=== PATIENT | female | born 1945 | race Asian ===

== ENCOUNTER 2017-08-05 12:24 | Inpatient (IN) | payer MEDICARE ==
[~2017-08-05] VITALS: Ht 160 cm; Wt 54.9 kg
--- NOTE | 2017-08-05 12:35 | NUR ---
SEND BY DR NAQVI: FREQUENT FALLS EVAL.PATIENT HAS R SHOULDER Fx S/P GLF. GENERALIZED MUSCLE WEAKNESS, UNSTEADY GAIT. A/OX 2, BREATHING EVEN AND UNLABORED. NO SOB, NAD, VITALS STABLE. SAFETY AND COMFORT MEASURES IN PLACE. AWAITING MD ORDERS.
[2017-08-05] MEDS ORDERED: IV NS 0.9% 1,000 ML BAG IV ONE (13:00)
--- NOTE | 2017-08-05 13:00 | NUR ---
NEW IV STARTED ON LAC, 20G. BLOOD DRAWN AND SENT TO LAB.
[2017-08-05 13:04] LABS: BASOPHILS % (AUTO) 0.1 % (0.0-2.0); EOSINOPHILS % (AUTO) 0.9 % (0.0-6.0); HEMATOCRIT 34 % (33-45); HEMOGLOBIN 11.6 g/dL (11.5-14.8); LYMPHOCYTES # (AUTO) 0.2 /CMM (0.8-4.8); LYMPHOCYTES % (AUTO) 8.2 % (20.0-44.0); MEAN CORPUSCULAR HGB CONC 34 g/dl (31.0-36.0); MEAN CORPUSCULAR VOLUME 87 fL (82-100); MONOCYTES # (AUTO) 0.1 /CMM (0.1-1.30); MONOCYTES % (AUTO) 3.2 % (2.0-12.0); NEUTROPHILS # (AUTO) 2.5 /CMM (1.8-8.9); NEUTROPHILS % (AUTO) 87.6 % (43.0-81.0); PLATELET COUNT (AUTO) 90 /CMM (150-450); RDW COEFFICIENT OF VARIATION 16.7 (11.5-15.0); RED BLOOD CELL COUNT(AUTO) 3.87 MIL/uL (4.0-5.2); WHITE BLOOD COUNT (AUTO) 2.8 K/uL (4.3-11.0)
--- NOTE | 2017-08-05 13:05 | NUR ---
RETREAD MOLD OPERATOR AT BEDSIDE.
[2017-08-05 13:16] LABS: CALCIUM, SERUM 9.7 mg/dL (8.5-10.1); CARBON DIOXIDE 31 mmol/L (21-32); CHLORIDE 98 mmol/L (98-107); CREATININE 1.2 mg/dL (0.6-1.3); GLUCOSE 146 mg/dL (74-106); POTASSIUM 3.7 mmol/L (3.5-5.1); SODIUM SERUM 136 mmol/L (136-145); UREA NITROGEN, BLOOD 44 mg/dL (7-18)
[2017-08-05 13:22] LABS: ALANINE AMINOTRANSFERASE 64 U/L (12-78); ALBUMIN 3.7 g/dL (3.4-5.0); ALKALINE PHOSPHATASE 101 U/L (46-116); ASPARTATE AMINOTRANSFERASE 90 U/L (15-37); BILIRUBIN,DIRECT 0.3 mg/dL (0.0-0.2); BILIRUBIN,TOTAL 0.7 mg/dL (0.2-1.0); TOTAL PROTEIN, SERUM 8.1 g/dL (6.4-8.2)
[2017-08-05 13:24] LABS: TROPONIN I < 0.017 ng/mL (0.00-0.056)
[2017-08-05 13:31] LABS: INR 0.92 (0.87-1.13)
[2017-08-05] MEDS ORDERED: LACT1CAP71 PO (13:43)
[2017-08-05] MEDS ORDERED: ALEN70TA3 PO (13:43)
[2017-08-05] MEDS ORDERED: MULT-447 PO (13:43)
[2017-08-05] MEDS ORDERED: METO25TA3 PO (13:43)
[2017-08-05] MEDS ORDERED: AMLO5TAB7 PO (13:43)
[2017-08-05] MEDS ORDERED: METH2.5T PO (13:43)
[2017-08-05] MEDS ORDERED: CALC1CAP21 PO (13:43)
[2017-08-05] MEDS ORDERED: OXYB15TA PO (13:43)
[2017-08-05] MEDS ORDERED: ESCI20TA PO (13:43)
[2017-08-05] MEDS ORDERED: LOSA100T3 PO (13:43)
[2017-08-05] MEDS ORDERED: MAGN400T26 PO (13:43)
[2017-08-05] MEDS ORDERED: ATOR10TA PO (13:43)
[2017-08-05] MEDS ORDERED: ASPI-1169 PO (13:43)
--- NOTE | 2017-08-05 13:58 | NUR ---
ANTIQUE AUTOMOBILES REPAIRER AT BEDSIDE ONCE AGAIN
[2017-08-05 14:28] LABS: APPEARANCE,URINE Clear (CLEAR); BILIRUBIN,URINE Negative (NEGATIVE); BLOOD, URINE Trace-lysed Ery/uL (NEGATIVE); COLOR,URINE Yellow (YELLOW); KETONES,URINE Negative (NEGATIVE); LEUKOCYTE ESTERASE ,URINE Negative (NEGATIVE); NITRITE, URINE Negative (NEGATIVE); PH,URINE 6.5 (5.0-8.0); PROTEIN,URINE Negative (NEGATIVE); UGLUCOSE 100 MG/DL mg/dL (NEGATIVE); UROBILINOGEN,URINE 0.2 EU/dL (0.2)
--- NOTE | 2017-08-05 14:43 | NUR ---
PATIENT TAKEN TO CT VIA STRETCHER.
[2017-08-05 14:48] LABS: BACTERIA,URINE None seen /HPF (None Seen); SQUAMOUS EPITHELIAL CELL,UR Few /HPF (None Seen)
--- NOTE | 2017-08-05 14:58 | NUR ---
PATIENT RETURNED FROM CT IN STABLE CONDITION.
[2017-08-05] MEDS ORDERED: GENTAMICIN OPTH OINT 0.3% 3.5 G TUBE EACHEYE SCH (15:00)
[2017-08-05] MEDS: ATORVASTATIN 10 MG TABLET PO SCH (15:00)
[2017-08-05] MEDS ORDERED: CEFTRIAXONE 1 G VIAL IM SCH (15:00)
[2017-08-05] MEDS: CALCIUM CARB 600MG /VIT D 1 EACH TABLET PO SCH (15:00)
[2017-08-05] MEDS: ASPIRIN 81 MG TAB.CHEW PO SCH (15:00)
[2017-08-05] MEDS: LOSARTAN POTASSIUM 50 MG TABLET PO SCH (15:00)
[2017-08-05] MEDS: MAGNESIUM OXIDE 400 MG TABLET PO SCH (15:00)
[2017-08-05] MEDS: METOPROLOL SUCCINATE 25 MG TAB.SR.24H PO SCH (15:00)
[2017-08-05] MEDS: AMLODIPINE BESYLATE 5 MG TABLET PO SCH (15:00)
[2017-08-05] MEDS: LACTOBACILLUS RHAMNOSUS GG 1 EACH CAP.SPRINK PO SCH (15:00)
[2017-08-05] MEDS: GENTAMICIN OPTH SOLN 0.3% 5 ML BOTTLE EACHEYE SCH ×3 (15:00→23:13)
[2017-08-05 15:17] LABS: BAND % (MANUAL) 13 % (0.0-5.0); LYMPHOCYTES % (MANUAL) 6 % (16-48); MONOCYTES % (MANUAL) 2 % (0-11.0); NEUTROPHILS % (MANUAL) 79 (42-76)
[2017-08-05 16:00] VITALS: BP 148/84
--- NOTE | 2017-08-05 16:15 | NUR ---
REPORT GIVEN TO SHANEKA HEIN FOR JOSE UPON ADMISSION.
--- NOTE | 2017-08-05 16:30 | NUR ---
WIRE WINDERBULL BUCKER NOTE PATIENT BROUGHT IN [facility] BY ER. PER PATIENT SHE HAD A FALL AT HOME, LIVES AT HOME WITH A ROOMMATE, ROOMMATE WAS ABLE TO BRING HER INTO THE EMERGENCY ROOM. RECEIVED REPORT FROM ANGEL LUIS LOCKE. PATIENT IS ALERT AND ORIENTED x2. S/P FALL AT HOME, BEDREST AT THIS TIME. HISTORY OF HTN, RHEUMATOID ARTHRITIS, AND ABDOMINAL SX. RECEIVED BOTH FLU AND PNEUMONIA VACCINES, UNABLE TO RECALL WHEN. LEFT AC IV INTACT AND PATENT NO REDNESS OR SWELLING NOTED. ABLE TO COMMUNICATE NEEDS. PATIENT HAS LEFT SIDE ARM WEAKNESS. TELE ST-107. HAS RIGHT CLAVICLE FRACTURE AND 3&4TH RIB FX. CARDIAC DIET. PENDING MD ORDERS AT THIS TIME WILL CONTINUE TO MONITOR THROUGHOUT SHIFT
--- NOTE | 2017-08-05 16:30 | NUR ---
PATIENT TRANSPORTED TO [facility]– [place] VIA ACLS PROTOCOL. RNSHANEKA TO PROVIDE JOSE.
--- NOTE | 2017-08-05 16:58 | NUR ---
RN NOTE PATIENT REFUSED ALL AFTERNOON MEDICATION PER PATIENT " I WILL TAKE THEM TOMORROW". EXPLAINED RISKS AND BENEFITS, PATIENT STILL REFUSED
[2017-08-05] MEDS ORDERED: ONDANSETRON HCL/PF 4 MG/2 ML VIAL IVP PRN (17:30)
[2017-08-05 17:40] VITALS: BP 149/85
[2017-08-05] MEDS ORDERED: ENOXAPARIN SODIUM 30 MG/0.3 ML DISP.SYRIN SQ SCH (18:00)
[2017-08-05] MEDS: CEFTRIAXONE 1 G in IV NS 0.9% 50 ML IV SCH (18:15)
[2017-08-05] MEDS: IV D5/ 0.9% NACL 1,000 ML IV PRN (18:16)
--- NOTE | 2017-08-05 18:42 | NUR ---
MODEL MAKER PLASTER CLOSING NOTE PATIENT IS RESTING COMFORTABLY AT THIS TIME. NO PAIN NOTED. NO SOB OR DISTRESS NOTED. CALL LIGHT WITHIN REACH AT ALL TIMES. SAFETY MEASURES IMPLEMENTED. IV INTACT AND PATENT WITH IV FLUIDS RUNNING AT THIS TIME TOLERATING WELL AT 25 ML/HR. ABLE TO COMMUNICATE NEEDS. ALL DUE MEDICATIONS GIVEN ORDERED. ALL NURSING CARE NEEDS ATTENDED TO. WILL ENDORSE TO MANAGER RETAIL STORE NURSE FOR JOSE
--- NOTE | 2017-08-05 19:15 | NUR ---
RECIEVED MS. URRUTIA AWAKE ALERT AND AWARE OF ME AT HERE BEDSIDE. SPEAKS IN A WHISPER,NOT HAND ELEVATOR REPAIRER APPRENTICE MODERATLY STRONG BUT RAISING HER ARMS NOTED WEAK AND SLOW SHE RAISES THEM SHE IS ABLE TO HOLD HER CELL PHONE AND TALK. NOTED ON HER BILATERAL LOWER BUTTOCKS TWO WOUNDS THAT APPEAR TO LOOK LIKE SCRAPE EATON PHOTOS TAKEN AND THE DAY SHIFT NURSE DID ORDER A WOUND CONSULT TO SEE HER PAT COGITIVE SLOW BUT WILL FOLLOW DIRECTIONS WHEN NURSE INTIATES THE DIRECTION.
[2017-08-05 20:00] VITALS: BP 144/88
[2017-08-05 20:20] VITALS: BP 144/88
[2017-08-06] VITALS: BP 153/77
[2017-08-06 01:20] VITALS: BP 153/77
[2017-08-06] MEDS: GENTAMICIN OPTH SOLN 0.3% 5 ML BOTTLE EACHEYE SCH ×6 (02:52→22:58)
[2017-08-06 04:00] VITALS: BP 131/74
--- NOTE | 2017-08-06 05:54 | NUR ---
HAS 2 HEARING AIDES SHE TALKS ON HER CELL PHONE TO A FRIEND AND NOTED HER SPEECH IS UNDERSTANDABLE. SHE IS INCONTINENT D/T THE URGE COMES FAST AND SHE IS BEING ASSISTED TO THE BATHROOM SHE VOIDS NOT BEING ABLE TO HOLD HER URINE.NOTED ON HER BILATERAL BUTTOCKS TWO LARGE ABRASION PHOTOS TAKEN AND CLEANED WITH SOAP AND WATER LAUREN APPLIED WOUND NURSE TO SEE PATIENT. PATIENT ANSWERS QUESTIONS AND FOLLOWS SIMPLE DIRECTIONS, NOTED SHE SEEMED TO BE GETTING CLEARER THE MORNING SET IN WHEN AMBULATING TO THE BATHROOM WITH THE ASSIST OF A NURSE NO DIZZINESS OR SON NOTED
[2017-08-06 06:32] LABS: EOSINOPHILS % (AUTO) 0.3 % (0.0-6.0); HEMATOCRIT 29 % (33-45); LYMPHOCYTES # (AUTO) 0.4 /CMM (0.8-4.8); LYMPHOCYTES % (AUTO) 6.1 % (20.0-44.0); MEAN CORPUSCULAR HGB CONC 34 g/dl (31.0-36.0); MEAN CORPUSCULAR VOLUME 89 fL (82-100); MONOCYTES # (AUTO) 0.2 /CMM (0.1-1.30); MONOCYTES % (AUTO) 2.7 % (2.0-12.0); NEUTROPHILS # (AUTO) 5.6 /CMM (1.8-8.9); NEUTROPHILS % (AUTO) 90.9 % (43.0-81.0); PLATELET COUNT (AUTO) 77 /CMM (150-450); RDW COEFFICIENT OF VARIATION 17.6 (11.5-15.0); WHITE BLOOD COUNT (AUTO) 6.2 K/uL (4.3-11.0)
[2017-08-06 06:44] VITALS: BP 159/81
[2017-08-06 06:45] LABS: CALCIUM, SERUM 8.3 mg/dL (8.5-10.1); CARBON DIOXIDE 28 mmol/L (21-32); CHLORIDE 103 mmol/L (98-107); CREATININE 0.7 mg/dL (0.6-1.3); GLUCOSE 127 mg/dL (74-106); MAGNESIUM 1.5 mg/dL (1.8-2.4); PHOSPHORUS 1.8 mg/dL (2.5-4.9); POTASSIUM 2.9 mmol/L (3.5-5.1); SODIUM SERUM 141 mmol/L (136-145); UREA NITROGEN, BLOOD 16 mg/dL (7-18)
--- NOTE | 2017-08-06 07:35 | NUR ---
RN OPENING NOTE RECEIVED PT. PT IS STABLE AND RESTING IN BED. A/OX4. NO S/S OR RESP DISTRESS OR SOB. PT HAS NO C/O PAIN AT THIS TIME. TELE MONITOR IN PLACE READING SR. IV ACCESS LOCATED ON LEFT AC INFUSING D5 NS AT 25 ML/HR. BUTTOCKS ABRASIONS NOTED WITH PHOTOS TAKEN AND PLACED IN CHART. SAFETY MEASURES IN PLACE, CALL LIGHT WITHIN REACH. WILL CONTINUE TO MONITOR.
[2017-08-06] MEDS: ATORVASTATIN 10 MG TABLET PO SCH (08:18)
[2017-08-06] MEDS: LACTOBACILLUS RHAMNOSUS GG 1 EACH CAP.SPRINK PO SCH (08:18)
[2017-08-06] MEDS: CALCIUM CARB 600MG /VIT D 1 EACH TABLET PO SCH (08:18)
[2017-08-06] MEDS: PANTOPRAZOLE 40 MG TABLET.DR PO SCH (08:18)
[2017-08-06] MEDS: ASPIRIN 81 MG TAB.CHEW PO SCH (08:18)
[2017-08-06] MEDS: MAGNESIUM OXIDE 400 MG TABLET PO SCH (08:18)
[2017-08-06] MEDS: ESCITALOPRAM OXALATE (10 MG) 10 MG TABLET PO SCH (08:18)
[2017-08-06] MEDS: MULTIVIT, IRON, MIN NO. 8, FA 1 TAB PO SCH (08:18)
[2017-08-06] MEDS: AMLODIPINE BESYLATE 5 MG TABLET PO SCH ×2 (08:19→09:26)
[2017-08-06] MEDS: METOPROLOL SUCCINATE 25 MG TAB.SR.24H PO SCH ×3 (08:19→16:15)
[2017-08-06] MEDS: LOSARTAN POTASSIUM 50 MG TABLET PO SCH (08:19)
[2017-08-06 08:57] LABS: BAND % (MANUAL) 8 % (0.0-5.0); LYMPHOCYTES % (MANUAL) 4 % (16-48); MONOCYTES % (MANUAL) 4 % (0-11.0); NEUTROPHILS % (MANUAL) 84 (42-76)
[2017-08-06] MEDS ORDERED: POTASSIUM CHLORIDE 20 MEQ TAB.PRT.SR PO SCH (10:00)
[2017-08-06] MEDS ORDERED: Magnesium 1GM/D5W 100ML PREMIX 100 ML IV SCH (10:00)
--- NOTE | 2017-08-06 10:30 | NUR ---
RN NOTES PT EXPERIENCING BOUTS OF SVT WITH HR OF UP TO 184 BPM. MD AND CARDIO NOTIFIED. NEW ORDERS PLACED. WILL CONTINUE TO MONITOR.
[2017-08-06 11:24] LABS: THYROID STIMULATING HORMONE 0.429 uIU/mL (0.358-3.74)
[2017-08-06] MEDS: NEUTRA PHOS 1 POWD.PACKET PO SCH ×2 (12:04→22:58)
[2017-08-06] MEDS: Magnesium 1GM/D5W 100ML PREMIX 100 ML IV SCH ×2 (12:04→12:36)
[2017-08-06] MEDS: POTASSIUM CHLORIDE 20 MEQ TAB.PRT.SR PO SCH ×5 (12:05→14:00)
[2017-08-06] MEDS: BOOST PLUS FOOD-CHOCLATE 237 ML BOX PO SCH ×2 (12:06→17:58)
--- NOTE | 2017-08-06 12:45 | NUR ---
RN NOTES PT HR MANAGED, BELOW 100 BPM. WILL CONTINUE TO MONITOR VIA TELE.
[2017-08-06] MEDS: CEFTRIAXONE 1 G in IV NS 0.9% 50 ML IV SCH (16:13)
--- NOTE | 2017-08-06 18:32 | NUR ---
RN CLOSING NOTE PT IN BED RESTING. NO S/S OF RESP DISTRESS OR SOB. NO C/O PAIN AT THIS TIME. TELE MONITOR READING SR AT 72 BPM. ALL PT NEEDS ANTICIPATED AND MET. BED PLACED IN LOWEST POSITION WITH SIDERAILS UP X 3. SAFETY MEASURES IN PLACE, CALL LIGHT WITHIN REACH. WILL ENDORSE TO JOINT MACHINE OPERATOR FOR JOSE.
--- NOTE | 2017-08-06 19:21 | NUR ---
RECIEVED MS. URRUTIA AWAKE AND ALERT TALKING IN A WHISPER-TONE SHEWILL MAKE HER NEEDS KNOWN. NOTED 2 HRG AIDES IN A MARKED CUP AT HER BEDSIDE.MOVING ALL EXT APPEARS COMFORTABLE. IV SITE LEFT WRIST IV INFUSING ON A PUMP SALINE LOCK LEFT AV SITE CLEAN AND DRY
[2017-08-06 19:53] VITALS: BP 131/75
[2017-08-06 20:03] VITALS: BP 131/75
[2017-08-06] MEDS ORDERED: NEUTRA PHOS 1 POWD.PACKET PO ONE (23:00)
[2017-08-07] VITALS (8 sets, daily range): BP systolic 124–153; BP diastolic 69–87
[2017-08-07] MEDS: GENTAMICIN OPTH SOLN 0.3% 5 ML BOTTLE EACHEYE SCH ×6 (03:00→23:33)
--- NOTE | 2017-08-07 04:59 | NUR ---
MS URRUTIA DIDN'T SETTLE FOR SLEEP UNTIL MIDNIGHT. NOTED WHEN ASSISTED UP THE BSC SHE NEEDED MUCH ASSIST SHE IS WEAK IN GENERAL A FALL RISK. BEDALARM ON WHEN IN BED SHE MAKES NO ATTEMPT TO GET OOB ON HER OWN
[2017-08-07 06:31] LABS: EOSINOPHILS % (AUTO) 0.4 % (0.0-6.0); HEMATOCRIT 30 % (33-45); HEMOGLOBIN 10.1 g/dL (11.5-14.8); LYMPHOCYTES # (AUTO) 0.5 /CMM (0.8-4.8); LYMPHOCYTES % (AUTO) 6.3 % (20.0-44.0); MEAN CORPUSCULAR HGB CONC 34 g/dl (31.0-36.0); MEAN CORPUSCULAR VOLUME 89 fL (82-100); MONOCYTES # (AUTO) 0.3 /CMM (0.1-1.30); NEUTROPHILS # (AUTO) 6.6 /CMM (1.8-8.9); NEUTROPHILS % (AUTO) 89.3 % (43.0-81.0); PLATELET COUNT (AUTO) 76 /CMM (150-450); RDW COEFFICIENT OF VARIATION 18.3 (11.5-15.0); RED BLOOD CELL COUNT(AUTO) 3.37 MIL/uL (4.0-5.2); WHITE BLOOD COUNT (AUTO) 7.4 K/uL (4.3-11.0)
[2017-08-07 06:49] LABS: TROPONIN I < 0.017 ng/mL (0.00-0.056)
[2017-08-07 07:20] LABS: ALANINE AMINOTRANSFERASE 38 U/L (12-78); ALBUMIN 2.7 g/dL (3.4-5.0); ALKALINE PHOSPHATASE 73 U/L (46-116); ASPARTATE AMINOTRANSFERASE 38 U/L (15-37); BILIRUBIN,TOTAL 0.6 mg/dL (0.2-1.0); CALCIUM, SERUM 8.2 mg/dL (8.5-10.1); CARBON DIOXIDE 27 mmol/L (21-32); CHLORIDE 103 mmol/L (98-107); CREATININE 0.8 mg/dL (0.6-1.3); GLUCOSE 128 mg/dL (74-106); MAGNESIUM 1.8 mg/dL (1.8-2.4); PHOSPHORUS 1.9 mg/dL (2.5-4.9); POTASSIUM 4.1 mmol/L (3.5-5.1); SODIUM SERUM 139 mmol/L (136-145); TOTAL PROTEIN, SERUM 6.7 g/dL (6.4-8.2); UREA NITROGEN, BLOOD 11 mg/dL (7-18)
--- NOTE | 2017-08-07 07:35 | NUR ---
RN OPENING NOTE RECEIVED PT. PT IS STABLE AND RESTING IN BED. A/OX4. NO S/S OR RESP DISTRESS OR SOB. PT HAS NO C/O PAIN AT THIS TIME. LOWER BUTTOCKS WOUND DRESSINGS IN PLACE AND INTACT. IV ACCESS LOCATED ON LEFT AC INFUSING D5 NS AT 25 ML/HR. SAFETY MEASURES IN PLACE, CALL LIGHT WITHIN REACH. WILL CONTINUE TO MONITOR.
[2017-08-07] MEDS: CALCIUM CARB 600MG /VIT D 1 EACH TABLET PO SCH (08:21)
[2017-08-07] MEDS: MULTIVIT, IRON, MIN NO. 8, FA 1 TAB PO SCH (08:21)
[2017-08-07] MEDS: ESCITALOPRAM OXALATE (10 MG) 10 MG TABLET PO SCH (08:21)
[2017-08-07] MEDS: AMLODIPINE BESYLATE 5 MG TABLET PO SCH (08:27)
[2017-08-07] MEDS: LACTOBACILLUS RHAMNOSUS GG 1 EACH CAP.SPRINK PO SCH (08:27)
[2017-08-07] MEDS: METOPROLOL SUCCINATE 25 MG TAB.SR.24H PO SCH ×2 (08:27→16:08)
[2017-08-07] MEDS: LOSARTAN POTASSIUM 50 MG TABLET PO SCH (08:28)
[2017-08-07] MEDS: ASPIRIN 81 MG TAB.CHEW PO SCH (08:28)
[2017-08-07] MEDS: PANTOPRAZOLE 40 MG TABLET.DR PO SCH (08:28)
[2017-08-07] MEDS: BOOST PLUS FOOD-CHOCLATE 237 ML BOX PO SCH ×2 (08:28→17:00)
[2017-08-07] MEDS: MAGNESIUM OXIDE 400 MG TABLET PO SCH (08:28)
[2017-08-07] MEDS: NEUTRA PHOS 1 POWD.PACKET PO SCH ×2 (08:30→16:09)
[2017-08-07 08:32] LABS: NEUTROPHILS % (MANUAL) 88 (42-76)
[2017-08-07 08:33] LABS: BAND % (MANUAL) 2 % (0.0-5.0); LYMPHOCYTES % (MANUAL) 6 % (16-48); MONOCYTES % (MANUAL) 4 % (0-11.0)
--- NOTE | 2017-08-07 08:57 | NUR ---
pt seen by dr. Ramesh, pt's sister at beside, no new orders at this time.
[2017-08-07 09:15] LABS: MAGNESIUM 1.9 mg/dL (1.8-2.4)
--- NOTE | 2017-08-07 09:57 | NUR ---
RN NOTES OB STOOL SAMPLE TAKEN, AWAITING PICKUP FROM LABORATORY.
[2017-08-07 16:01] LABS: OCCULT BLOOD STOOL POSITIVE (NEGATIVE)
--- NOTE | 2017-08-07 18:49 | NUR ---
RN CLOSING NOTE PT IN BED RESTING. NO S/S OF RESP DISTRESS OR SOB. PT CONTINUES TO HAVE NON-PRODUCTIVE, PERSISTENT COUGH. PT TO HAVE F/U WITH PT AND CM REGARDING THERAPY AND D/C SERVICES. ALL PT NEEDS ANTICIPATED AND MET. SAFETY MEASURES IN PLACE, CALL LIGHT WITHIN REACH. WILL ENDORSE TO MOVER FOR JOSE.
--- NOTE | 2017-08-07 19:30 | NUR ---
RN NOTE; RECEIVED PT IN BED AWAKE AND ALERT. BREATHING EVENLY. NO SOB. NAD. SKIN WARM AND DRY, NO C/O PAIN OR DISCOMFORT. NEEDS ATTENDED . BED LOW LOCKED. CALL LIGHT WITHIN REACH., WILL CONT TO MONITOR.
[2017-08-07] MEDS: IV D5/ 0.9% NACL 1,000 ML IV PRN (23:35)
[2017-08-08] MEDS: GENTAMICIN OPTH SOLN 0.3% 5 ML BOTTLE EACHEYE SCH ×6 (03:23→23:15)
[2017-08-08 06:57] LABS: ALANINE AMINOTRANSFERASE 42 U/L (12-78); ALBUMIN 2.6 g/dL (3.4-5.0); ALKALINE PHOSPHATASE 81 U/L (46-116); ASPARTATE AMINOTRANSFERASE 35 U/L (15-37); BILIRUBIN,TOTAL 0.6 mg/dL (0.2-1.0); CALCIUM, SERUM 8.4 mg/dL (8.5-10.1); CARBON DIOXIDE 29 mmol/L (21-32); CHLORIDE 102 mmol/L (98-107); CREATININE 0.6 mg/dL (0.6-1.3); GLUCOSE 127 mg/dL (74-106); MAGNESIUM 1.8 mg/dL (1.8-2.4); PHOSPHORUS 2.4 mg/dL (2.5-4.9); POTASSIUM 3.6 mmol/L (3.5-5.1); SODIUM SERUM 138 mmol/L (136-145); TOTAL PROTEIN, SERUM 6.6 g/dL (6.4-8.2); UREA NITROGEN, BLOOD 7 mg/dL (7-18)
--- NOTE | 2017-08-08 07:05 | NUR ---
PT IN BED REMAINED STABLE THROUGH THE SHIFT . FALL PRECAUTION OBSERVED. NEEDS ATTENDED. BED LOW LOCKED. CALL LIGHT WITHIN REACH .WILL CONT TO MONITOR ,
[2017-08-08 07:16] LABS: BASOPHILS % (AUTO) 0.1 % (0.0-2.0); EOSINOPHILS % (AUTO) 1.7 % (0.0-6.0); HEMATOCRIT 31 % (33-45); HEMOGLOBIN 10.3 g/dL (11.5-14.8); LYMPHOCYTES # (AUTO) 0.4 /CMM (0.8-4.8); LYMPHOCYTES % (AUTO) 10.4 % (20.0-44.0); MEAN CORPUSCULAR HGB CONC 33 g/dl (31.0-36.0); MEAN CORPUSCULAR VOLUME 89 fL (82-100); MONOCYTES # (AUTO) 0.4 /CMM (0.1-1.30); MONOCYTES % (AUTO) 8.4 % (2.0-12.0); NEUTROPHILS # (AUTO) 3.4 /CMM (1.8-8.9); NEUTROPHILS % (AUTO) 79.4 % (43.0-81.0); PLATELET COUNT (AUTO) 77 /CMM (150-450); RDW COEFFICIENT OF VARIATION 17.3 (11.5-15.0); RED BLOOD CELL COUNT(AUTO) 3.48 MIL/uL (4.0-5.2); WHITE BLOOD COUNT (AUTO) 4.3 K/uL (4.3-11.0)
--- NOTE | 2017-08-08 07:45 | NUR ---
RN OPENING NOTES RECEIVED PT. IN BED A&OX4. BREATHING UNLABORED, AND EVENLY ON ROOM AIR. NO S/S OF ACUTE DISTRESS. PT. C/O GENERALIZED JOINT PAIN, PAIN ASSESSED AND PT. AGREED TO TAKING PAIN MEDICATION. IV FLUIDS RUNNING AT 25 ML/HR. BEDSIDE COMMODE WITHIN REACH. BED ALARM ON. BED IS IN LOWEST, AND LOCKED POSITION. 2 SIDE RAILS UP, AND INSTRUCTED PT. TO USE CALL LIGHT FOR ASSISTANCE. ALL NEEDS MET. WILL CONTINUE TO ASSESS AND MONITOR.
[2017-08-08] MEDS: PANTOPRAZOLE 40 MG TABLET.DR PO SCH (07:58)
[2017-08-08] MEDS: BOOST PLUS FOOD-CHOCLATE 237 ML BOX PO SCH ×2 (07:59→17:30)
[2017-08-08 08:00] VITALS: BP 164/95
[2017-08-08] MEDS: ASPIRIN 81 MG TAB.CHEW PO SCH (08:01)
[2017-08-08] MEDS: LOSARTAN POTASSIUM 50 MG TABLET PO SCH (08:02)
[2017-08-08] MEDS: HYDROCODONE/APAP 5/325MG 1 EACH TABLET PO PRN ×2 (08:02→17:34)
[2017-08-08] MEDS: MAGNESIUM OXIDE 400 MG TABLET PO SCH (08:03)
[2017-08-08] MEDS: MULTIVIT, IRON, MIN NO. 8, FA 1 TAB PO SCH (08:03)
[2017-08-08] MEDS: CALCIUM CARB 600MG /VIT D 1 EACH TABLET PO SCH (08:03)
[2017-08-08] MEDS: AMLODIPINE BESYLATE 5 MG TABLET PO SCH (08:03)
[2017-08-08] MEDS: LACTOBACILLUS RHAMNOSUS GG 1 EACH CAP.SPRINK PO SCH (08:03)
[2017-08-08] MEDS: METOPROLOL SUCCINATE 25 MG TAB.SR.24H PO SCH ×2 (08:04→17:31)
[2017-08-08] MEDS: ESCITALOPRAM OXALATE (10 MG) 10 MG TABLET PO SCH (08:04)
--- NOTE | 2017-08-08 08:45 | NUR ---
RN NOTES BP RECHECKED, 141/86, AND PULSE 65 BPM.
[2017-08-08 10:09] LABS: EOSINOPHILS % (MANUAL) 2 % (0-4); LYMPHOCYTES % (MANUAL) 15 % (16-48); MONOCYTES % (MANUAL) 8 % (0-11.0); NEUTROPHILS % (MANUAL) 75 (42-76)
[2017-08-08 10:17] LABS: *SPE A/G RATIO 1.1 (0.7-1.7); *SPE ALBUMIN 3.2 g/dL (2.9-4.4); *SPE ALPHA-1-GLOBULIN 0.3 g/dL (0.0-0.4); *SPE ALPHA-2-GLOBULIN 0.7 g/dL (0.4-1.0); *SPE BETA GLOBULIN 0.8 g/dL (0.7-1.3); *SPE GLOBULIN, TOTAL 2.9 g/dL (2.2-3.9); *SPE M-SPIKE Not Observed g/dL (Not Observed); *SPEGAMMA GLOBULIN 1.1 g/dL (0.4-1.8)
--- NOTE | 2017-08-08 10:38 | NUR ---
WOUND CARE CONSULT: PER TESFAYE KIRK N.P. PLASTIC SURGICAL TEAM TO FOLLOW PT FOR WOUNDS. DEFER TO SURGICAL TEAM. CURRENT ANGELINA SCORE IS 18. ALL SKIN PROTECTION AND PRESSURE PREVENTION MEASURES IN PLACE AND DISCUSSED WITH NURSING STAFF.
--- NOTE | 2017-08-08 10:55 | NUR ---
RN NOTES RECHECKED MANUAL BP, 118/68.
[2017-08-08] MEDS: VALSARTAN 80 MG TABLET PO SCH (11:07)
--- NOTE | 2017-08-08 11:40 | NUR ---
RN NOTES MOVED PT. TO ROOM 306 BED 1.
--- NOTE | 2017-08-08 13:00 | NUR ---
RN NOTES PT. RECEIVED A BILATERAL BUTTOCKS WOUND DEBRIDEMENT BY DR. MCARTHUR, CONSENT FORMS WERE SIGNED PRIOR TO PROCEDURE. PT. TOLERATED PROCEDURE WELL.
[2017-08-08] MEDS: NEOMY SULF/BACITRAC ZN/POLY 15 GM TUBE TP SCH (15:23)
[2017-08-08] MEDS: SILVER SULFADIAZINE CREAM 25 GM TUBE TP SCH (15:23)
[2017-08-08] MEDS ORDERED: K PHOS NEUTRAL 250 MG TABLET PO ONE (15:30)
[2017-08-08 16:00] VITALS: BP 144/79
--- NOTE | 2017-08-08 16:19 | NUR ---
RN NOTES WOUND CARE WAS PERFORMED PER ORDERS. PT. TOLERATED WOUND CARE WELL.
--- NOTE | 2017-08-08 19:21 | NUR ---
RN CLOSING NOTES PT. IS IN BED A&OX4. BREATHING UNLABORED, AND EVENLY ON ROOM AIR. NO S/S OF ACUTE DISTRESS. IV ACCESS IS INTACT AND PATENT. BEDSIDE COMMODE WITHIN REACH. BED ALARM ON. BED IS IN LOWEST, AND LOCKED POSITION. 2 SIDE RAILS UP, AND INSTRUCTED PT. TO USE CALL LIGHT FOR ASSISTANCE. ALL NEEDS MET. WILL ENDORSE REPORT TO NURSE.
--- NOTE | 2017-08-08 19:35 | NUR ---
MS RN OPENING NOTES RECEIVED PT IN BED ALERT, AWAKE, VERBALLY RESPONSIVE, ON ROOM AIR, RESPIRATIONS EVEN, UNLABORED, NO APPARENT DISTRESS NOTED. DENIES ANY PAIN OR DISCOMFORT AT THIS TIME. IV SITE RT HAND INTACT, PATENT. CALL LIGHT WITHIN REACH, BED LOCKED IN LOWEST POSITION. ATTENDED ALL NEEDS.WILL CONTINUE TO MONITOR ACCORDINGLY.
[2017-08-08 20:00] VITALS: BP 115/80
[2017-08-08 22:00] VITALS: BP 115/80
[2017-08-09] MEDS: GENTAMICIN OPTH SOLN 0.3% 5 ML BOTTLE EACHEYE SCH ×5 (02:57→17:37)
[2017-08-09 06:16] LABS: CALCIUM, SERUM 8.8 mg/dL (8.5-10.1); CARBON DIOXIDE 28 mmol/L (21-32); CHLORIDE 101 mmol/L (98-107); CREATININE 0.6 mg/dL (0.6-1.3); GLUCOSE 124 mg/dL (74-106); MAGNESIUM 1.9 mg/dL (1.8-2.4); PHOSPHORUS 3.4 mg/dL (2.5-4.9); POTASSIUM 3.6 mmol/L (3.5-5.1); SODIUM SERUM 138 mmol/L (136-145); UREA NITROGEN, BLOOD 11 mg/dL (7-18)
--- NOTE | 2017-08-09 06:28 | NUR ---
MS RN CLOSING NOTES PT IN BED, RESTING COMFORTABLY, ON ROOM AIR, RESPIRATIONS EVEN, UNLABORED, NO APPARENT DISTRESS NOTED. IV LAC SITE PATENT. CALL LIGHT WITHIN REACH. ATTENDED ALL NEEDS. WILL CONTINUE TO MONITOR ACCORDINGLY.
[2017-08-09 08:00] VITALS: BP 133/77
[2017-08-09] MEDS: BOOST PLUS FOOD-CHOCLATE 237 ML BOX PO SCH ×2 (08:00→17:00)
--- NOTE | 2017-08-09 08:00 | NUR ---
MS RN RECEIVED ON BED, AWAKE,ALERT,ORIENTED X3-4 BUT FORGETFUL AT TIMES, NOT IN ANY FORM OF DISTRESS, RESPIRATIONS EVEN AND UNLABORED,NO SOB NOTED, LUNGS ARE CLEAR,ABDOMEN SOFT,POSITIVE BOWEL SOUNDS, DENIES PAIN AT THIS TIME, WILL MONITOR PATIENT'S CONDITION.
[2017-08-09] MEDS ORDERED: CADEXOMER IODINE 40 GM TUBE TP SCH (09:00)
--- NOTE | 2017-08-09 09:00 | NUR ---
MS HEIN BREAKFAST SERVED,DUE MEDS GIVEN,TOLERATED WELL.
[2017-08-09] MEDS: MULTIVIT, IRON, MIN NO. 8, FA 1 TAB PO SCH (09:18)
[2017-08-09] MEDS: CALCIUM CARB 600MG /VIT D 1 EACH TABLET PO SCH (09:18)
[2017-08-09] MEDS: ASPIRIN 81 MG TAB.CHEW PO SCH (09:18)
[2017-08-09] MEDS: ESCITALOPRAM OXALATE (10 MG) 10 MG TABLET PO SCH (09:18)
[2017-08-09] MEDS: PANTOPRAZOLE 40 MG TABLET.DR PO SCH (09:18)
[2017-08-09] MEDS: AMLODIPINE BESYLATE 5 MG TABLET PO SCH (09:19)
[2017-08-09] MEDS: VALSARTAN 80 MG TABLET PO SCH (09:19)
[2017-08-09] MEDS: LACTOBACILLUS RHAMNOSUS GG 1 EACH CAP.SPRINK PO SCH (09:19)
[2017-08-09] MEDS: MAGNESIUM OXIDE 400 MG TABLET PO SCH (09:19)
[2017-08-09] MEDS: METOPROLOL SUCCINATE 25 MG TAB.SR.24H PO SCH ×2 (09:19→17:31)
[2017-08-09] MEDS: NEOMY SULF/BACITRAC ZN/POLY 15 GM TUBE TP SCH (09:22)
[2017-08-09] MEDS: SILVER SULFADIAZINE CREAM 25 GM TUBE TP SCH (09:23)
--- NOTE | 2017-08-09 11:20 | NUR ---
MS RN WAS SEEN BY DR. JENKINS W/ ORDER TO GO TO SNF TODAY, MASTER MECHANIC IS AWARE.
[2017-08-09 16:00] VITALS: BP 122/80
[2017-08-09 17:31] VITALS: BP 122/80
--- NOTE | 2017-08-09 18:10 | NUR ---
ms rn patient was transferred to [facility], report given to emery dutta.
== END 2017-08-09 18:10 | DRG 40 ==
LOC: ER 12:26 → TELE 14:09 → MED 08-07 08:50
PROVIDERS: ADMIT Legal Medicine; ATTEND Legal Medicine
PROC: 0JB90ZZ Excision of Buttock Subcutaneous Tissue and Fascia, Open Approach (ICD-10-PCS; principal; 2017-08-08)
DX: G90.8 Other disorders of autonomic nervous system (principal); G93.40 Encephalopathy, unspecified; N17.9 Acute kidney failure, unspecified; L89.312 Pressure ulcer of right buttock, stage 2; L89.322 Pressure ulcer of left buttock, stage 2; D69.6 Thrombocytopenia, unspecified; E86.0 Dehydration; L89.893 Pressure ulcer of other site, stage 3; E83.42 Hypomagnesemia; E83.39 Other disorders of phosphorus metabolism; D63.8 Anemia in other chronic diseases classified elsewhere; W18.30XA Fall on same level, unspecified, initial encounter; D72.819 Decreased white blood cell count, unspecified; S42.031A Displaced fracture of lateral end of right clavicle, initial encounter for closed fracture; E86.1 Hypovolemia; E87.6 Hypokalemia; F32.9 Major depressive disorder, single episode, unspecified; J40 Bronchitis, not specified as acute or chronic; M06.9 Rheumatoid arthritis, unspecified; I10 Essential (primary) hypertension; S80.02XA Contusion of left knee, initial encounter; S80.01XA Contusion of right knee, initial encounter; X58.XXXA Exposure to other specified factors, initial encounter; Y93.9 Activity, unspecified; R29.6 Repeated falls; R73.9 Hyperglycemia, unspecified; R26.9 Unspecified abnormalities of gait and mobility; S91.311A Laceration without foreign body, right foot, initial encounter; G31.84 Mild cognitive impairment of uncertain or unknown etiology; Y92.009 Unspecified place in unspecified non-institutional (private) residence as the place of occurrence of the external cause; M19.90 Unspecified osteoarthritis, unspecified site
CPT/HCPCS: 36415; 70450-TC; 71045-TC; 71250-TC; 73030-TC; 73080-TC; 73562; 80048-TC; 80053-TC; 80061-TC; 80076-TC; 81000-TC; 82272-TC; 82306; 82728-TC; 83540-TC; 83605-TC; 83735-TC; 84100-TC; 84155; 84165; 84439-TC; 84443-TC; 84484-TC; 85025-TC; 85652-TC; 85730-TC; 87040-TC; 87081-TC; 87086-TC; 93307-TC; 97110-TC; 97116-TC; 97530-TC; A4216; A4606; A6403; J0696; J3475; J7030; J7042; Z7610